=== PATIENT | male | born 1980 | race Caucasian/White ===

== ENCOUNTER 2016-10-02 18:50 | Emergency (ER) | payer BC ==
[~2016-10-02] VITALS: Ht 188 cm; Wt 103.6 kg
[2016-10-02 20:45] LABS: BASO % 0.5 % (0.0-1.0); EOS # 0.1 K/mm3 (0.0-0.50); EOS % 1.4 % (0.0-3.0); LARGE UNSTAINED CELL # 0.2 K/mm3 (0.0-0.4); LARGE UNSTAINED CELL % 2.5 % (0.0-4.0); LYMPH # 3.3 K/mm3 (1.5-4.5); LYMPH % 35.8 % (24.0-44.0); MEAN CORPUSCULAR HGB CONC 34.5 g/dl (32.0-36.5); MEAN CORPUSCULAR VOLUME 86.8 fl (80.0-96.0); MONO # 0.6 K/mm3 (0.0-0.8); MONO % 6.6 % (0.0-5.0); NEUTROPHILS # 4.9 K/mm3 (1.8-7.7); NEUTROPHILS % 53.2 % (36.0-66.0); PLATELET COUNT, AUTOMATED 204 k/mm3 (150-450); WHITE BLOOD COUNT 9.3 K/mm3 (4.0-10.0)
[2016-10-02] MEDS ORDERED: ASPIRIN 81 MG CHEW TABLET PO ONE (20:45)
--- NOTE | 2016-10-02 20:49 | ECGEPIP ---
Stationary ECG Study [facility] - ED Test Date: 2016-10-02 Pat Name: RAFAEL WOODS Department: Room: - Gender: M Or Manager: mr : 1980 Requested By: NIKI Otto Order Number: [id number] Reading MD: Antionette Schwartz Measurements Intervals [place] Rate: 71 P: 65 IN: 194 QRS: 64 QRSD: 103 T: 57 QT: 357 QTc: 390 Interpretive Statements SINUS RHYTHM NO OLD ECG TO COMPARE Electronically Signed On 10-02-2016 20:49:24 EST by Antionette Schwartz
[2016-10-02 20:55] LABS: ALBUMIN 3.9 GM/DL (3.2-5.2); ALBUMIN/GLOBULIN RATIO 1.22 (1.00-1.93); ALKALINE PHOSPHATASE 84 U/L (45-117); ALT/SGPT 56 U/L (12-78); ANION GAP 7 MEQ/L (8-16); AST/SGOT 27 U/L (15-37); BILIRUBIN,DIRECT < 0.1 MG/DL (0.0-0.2); BILIRUBIN,TOTAL 0.2 MG/DL (0.2-1.0); BLOOD UREA NITROGEN 15 MG/DL (7-18); CALCIUM LEVEL 9.1 MG/DL (8.5-10.1); CARBON DIOXIDE LEVEL 29 MEQ/L (21-32); CHLORIDE LEVEL 107 MEQ/L (98-107); CREATININE FOR GFR 0.86 MG/DL (0.70-1.30); FREE T4 0.91 NG/DL (0.76-1.46); GLOMERULAR FILTRATION RATE > 60.0 (>60); GLUCOSE, FASTING 95 MG/DL (70-105); POTASSIUM SERUM 4.7 MEQ/L (3.5-5.1); SODIUM LEVEL 143 MEQ/L (136-145); TOTAL PROTEIN 7.1 GM/DL (6.4-8.2)
[2016-10-02 22:49] VITALS: BP 110/72
--- NOTE | 2016-10-03 06:16 | REP ---
Clinical: Chest pain . Comparison: 10/31/2003 . Findings: The mediastinum and cardiac silhouette are stable and within normal limits for portable technique. The lung collins are clear without acute consolidation, effusion, or pneumothorax. Skeletal structures are intact. Impression: Normal portable chest x-ray Signed by Codey Eugene MD 10/03/2016 06:08 A
== END 2016-10-02 22:57 | disposition home or self-care (01) ==
LOC: M ED 22:16
DX: I20.9 Angina pectoris, unspecified (principal); R06.02 Shortness of breath; F17.210 Nicotine dependence, cigarettes, uncomplicated